=== PATIENT | female | born 1990 | race American Indian/Alaskan Native ===

== ENCOUNTER 2024-07-17 15:18 | Outpatient (CLI) | payer OTHER, SELFPAY ==
[2024-07-17] VITALS (26 sets, daily range): BP systolic 104–128; BP diastolic 63–78; PULSE 51–80; RESP 17–97; TEMP 36.9; O2SAT 97–99; BMI 28.8
--- NOTE | 2024-07-17 15:57 | XR_ITS ---
Examination: Biophysical profile, ultrasound Date and time of exam: July 17, 2024 1634 hours INDICATIONS: deceleration on stress testing in the doctor's office today Technique: Multiple transabdominal sonographic images of the pelvis abdomen obtained. Attention is directed to the breathing movement, gross body movement, amniotic fluid volume and tone. Findings: Amniotic fluid index 5.3 cm Total biophysical profile is 8 of 8. breathing movement is 2. Gross body movement is 2. tone is 2. Qualitative amniotic fluid volume is 2 Impression: Biophysical profile is 8 of 8.
--- NOTE | 2024-07-17 18:06 | PD.LDPN ---
Documentation for date of: 07/17/24 OB Labor Progress Note Pelvic Exam Amniotic membrane status: Intact Assessment and Plan Comments: Renetta is a 34yo with SIUP at 36+wk presenting to L&D for evaluation after having an audible heart rate decel at routine OB visit today with Dr. Arriaga. She notes no painful/regular ctx, no vaginal bleeding, no loss of fluid. Normal movement. She notes that last week amniotic fluid was low, she was admitted to the hospital in [place] and discharged when repeat ultrasound showed fluid went up. Current : This is complicated by: IUGR (4th percentile), has IOL scheduled 07/21 in [place] 2 prior term svds ROS negative other than what was described above. Vitals wnl, afebrile General: well developed, well nourished, no acute distress, conversant Cardiac: normal heart rate Lungs: breathing without distress Abdomen: soft, gravid, non-tender, no rebound or guarding Extremities: no pain with palpation of calves NST: Reactive, +accels, no decels, mod celeste [place]: no regular ctx pattern BPP: 8/8 but RICKEY 5.3cm Assessment: Renetta is a 34yo with SIUP at 36+wk with borderline oligohydramnios. Vitals wnl, benign exam. Plan: -Discussed findings with patient and recommendation for observation status for IV and oral hydration. She is amenable. -Establish IV, LR at 125ml/hr -Regular diet -CEFM -Repeat BPP in the morning Angelika Ritchie MD
[2024-07-17] MEDS: RINGERS LACTATED 1000 ML 1,000 ML 125 ML IV (19:07)
[2024-07-18] VITALS (20 sets, daily range): BP systolic 115–123; BP diastolic 59–69; PULSE 49–68; O2SAT 96–98
[2024-07-18] MEDS: RINGERS LACTATED 1000 ML 1,000 ML 125 ML IV ×2 (02:27→11:00)
--- NOTE | 2024-07-18 08:00 | XR_ITS ---
Examination: Biophysical profile, ultrasound Date and time of exam: July 18, 2024 1107 hours INDICATIONS: Low amniotic fluid index 5.3 cm on ultrasound July 17, 2024 Technique: Multiple transabdominal sonographic images of the pelvis abdomen obtained. Attention is directed to the breathing movement, gross body movement, amniotic fluid volume and tone. Findings: Amniotic fluid index 8.4 cm Total biophysical profile is 8 of 8. breathing movement is 2. Gross body movement is 2. tone is 2. Qualitative amniotic fluid volume is 2 Impression: Biophysical profile is 8 of 8.
--- NOTE | 2024-07-18 11:42 | PD.LDDS ---
DS: Providers Provider Primary care physician: Physician No Primary/Family Attending Provider on Admission: Gustavo Redding MD Attending Provider on DC: Angelika Ritchie MD Discharging Provider: Angelika Ritchie MD DS: Diagnosis Discharge Diagnosis (1) IUGR (intrauterine growth restriction): Status: Acute Problem List Completed Was Problem List Reviewed/Reconciled?: Yes Summary/Hosp Course Brief History: Renetta is a 34yo with SIUP at 36+wk who was sent for assessment after having an audible FHR decel in office yesterday. On testing, she had reactive NST with no decels and BPP was 8/8, but RICKEY was only 5.3cm, borderline oligohydramnios. She was observed and hydrated (IV and oral) overnight with continuous heart rate monitoring. Repeat BPP today is 8/8 with RICKEY 8cm by verbal report. FHRT is overwhelmingly Cat I with mod celeste, +accels, NO late decels (in the >12hr of monitoring, there were only a couple variable decels). She feels well, has had very active movement (more than she has felt in previous days), no bleeding, lof, or regular ctx. Vitals wnl, benign exam. At this time it is safe for discharge. She has follow up scheduled with Dr. Arriaga for NST visit on of this week. Status at Discharge Functional status at discharge: independent ambulation Overall status at discharge: patient is back to baseline Time Spent with Patient Time attestation: Total time spent providing and/or coordinating discharge services: Exam Vital Signs Temp Pulse Resp BP Pulse Ox O2 Del Method 98.5 F 64 17 122/59 L 98 Room Air 07/17/24 16:00 07/18/24 10:59 07/17/24 16:00 07/18/24 10:59 07/18/24 08:25 07/17/24 15:27 Narrative Exam General: well developed, well nourished, no acute distress, conversant Cardiac: normal heart rate Lungs: breathing without distress Abdomen: soft, gravid, non-tender, no rebound or guarding Extremities: no edema of BLE Discharge Plan Plan Patient Disposition: HOME (Self Care) Patient condition on transfer: Stable Prescriptions/Referrals Prescriptions/Med Rec: No Action Vitamin Tablet 1 tab PO QDAY Referrals: No Primary/Family,Physician [Primary Care Provider] - Patient/Caregiver Discharge Instructions Discharge Activity: activity as tolerated Other Discharge Activity Instructions:: Good hydration all day long Other Discharge Diet Instructions: Regular Education Materials: Kick Counts, Prematurity, [facility] Antepartum Discharge, Antepartum Discharge Print Language: [place] Islander Activity Restrictions/Additional Instructions: -Increase Fluid intake -Keep Follow Up appointment with Primary Superintendent Drilling. Stand Alone Forms: Patient Portal Info Letter Discharge Order Discharge Orders: Discharge (Routine); Ordered 07/18/24 Ordered By: Angelika Ritchie Planned Discharge Date 07/18/24
== END 2024-07-18 11:52 | disposition home or self-care (01) ==
LOC: S4S1 15:20 → S4SX 15:21
PROVIDERS: Referring Provider Obstetrics & Gynecology; Visit Provider Obstetrics & Gynecology
DX: O47.03 False labor before 37 completed weeks of gestation, third trimester (principal); O36.5930 Maternal care for other known or suspected poor fetal growth, third trimester, not applicable or unspecified; Z3A.36 36 weeks gestation of pregnancy
CPT/HCPCS: 59025; 76819; 96360; 96361; J7120

== ENCOUNTER 2024-07-18 23:21 | Inpatient (IN) | payer OTHER, SELFPAY ==
[2024-07-18 23:25] VITALS: BP 133/64; PULSE 68; RESP 17; RESP 98; TEMP 37.2
[2024-07-18 23:32] VITALS: BP 133/64; PULSE 68
[2024-07-19] VITALS (33 sets, daily range): BP systolic 105–150; BP diastolic 53–77; PULSE 41–100; RESP 16–20; TEMP 36.7–36.9; O2SAT 85–100; BMI 29.2
[2024-07-19] MEDS: RINGERS LACTATED 1000 ML 1,000 ML 125 ML IV (00:21)
[2024-07-19 00:30] LABS: Basophils % (Auto) 0 % (0-2.5); Eosinophils % (Auto) 0 % (0-10); Hematocrit 32.3 % (36.0-46.0); Hemoglobin 11.3 g/dL (12.0-16.0); Immature Granulocytes % (Auto) 0 % (0-0); Immature Granulocytes Auto 0.02 Thou/mm3 (0.00-0.00); Lymphocytes # (Auto) 1.2 Thou/mm3 (1.0-4.8); Lymphocytes % (Auto) 14 % (10-50); Mean Corpuscular Hemoglobin 28.6 pg (25.0-35.0); Mean Corpuscular Volume 82 fL (80-100); Monocytes # (Auto) 0.7 Thou/mm3 (0.0-0.8); Monocytes % (Auto) 8 % (0-12); Neutrophils # (Auto) 6.5 Thou/mm3 (1.8-7.7); Neutrophils % (Auto) 78 % (37-80); Nucleated Red Blood Cell % 0 /100 WBC (0); Platelet Count 100 Thou/mm3 (140-440); RDW Standard Deviation 43.1 fL (36.4-46.3); Red Blood Count 3.95 Miln/mm3 (4.00-5.20); White Blood Count 8.4 Thou/mm3 (3.6-11.0)
[2024-07-19] MEDS: Ampicillin Inj 2,000 MG in SODIUM CHLORIDE 0.9% (POP) 100 ML 200 MG IV (00:50)
[2024-07-19] MEDS: MISOPROSTOL 50 mCg TABLET PO (00:50)
[2024-07-19 01:08] LABS: Syphilis Nonreactive (Nonreactive)
[2024-07-19 04:38] LABS: Amphetamine/Metham Scrn,Ur OB Negative (Negative); Benzoylecgonine Screen, Ur OB Negative (Negative); Opiate Screen,Urine OB Negative (Negative); THC Screen,Urine OB Negative (Negative)
[2024-07-19] MEDS: Ampicillin Inj 1,000 MG in SODIUM CHLORIDE 0.9% (Popper) 50 ML 50 MG IV (04:54)
--- NOTE | 2024-07-19 05:02 | PD.LDHP ---
Documentation for date of: 07/19/24 OB Labor/Induct. HPI History of Present Illness Chief complaint: leakage of fluid : 3 Para: 2 Term pregnancies: 2 pregnancies: 0 Living children: 2 History of Abortions: Spontaneous and Elective: 2 History of Vaginal deliveries: 0 History of sections: No History of : No Date of last menstrual period: 11/04/23 STEW: 08/10/24 Gestational Age (weeks): 36 Gestational Age (days): 6 Gestational age based on last menstrual period: 36 History of present illness: Patient presents for loss of fluid, clear, that occurred at 2220. No regular/painful ctx. No vaginal bleeding. Normal movement. No fevers/chills. History of Present Adequate Care: Yes Abnormal ultrasound findings: Most recent growth scan: 4th percentile IUGR Narrative: 2019 7lb1 2020 6lb11 Labs Maternal Blood Type: A Pos Labs: Negative: RPR, Hepatitis B, Rubella Titre, HIV, Chlamydia and Gonorrhea and Unknown: Herpes Type 1, Herpes Type 2 and Group Beta Strep Review of Systems Review of Systems Narrative Review of Systems: Review of Systems Systems Reviewed: All systems reviewed, normal except as documented Constitutional Constitutional: Denies body ache(s), Denies chills, Denies fever(s) and Denies headache(s) ENT Ears, Nose, Mouth, and Throat: Denies headache(s) and Denies vertigo Cardiovascular Cardiovascular: Denies chest pain, Denies palpitations, Denies dyspnea and Denies syncope Respiratory Respiratory: Denies cough, Denies dyspnea Gastrointestinal Gastrointestinal: Denies nausea and Denies vomiting Neurologic Neurologic: Denies convulsions, Denies headache(s), Denies other visual disturbances, Denies syncope and Denies vertigo Past Medical History Family History OTHER FAMILY HX: non-contributory Surgical History SURGICAL: Negative Section OTHER SURGICAL HX: no abdominal surgeries Social History SOCIAL: No tobacco/ETOH/illicit drug use Past Medical History Comments PMH COMMENT: Patient has hx of spina bifida occulta Hx of chlamydia salpingitis/PID Anemia Hx of anxiety/depression Meds Home Medications and Allergies Home Medications ?Medication ?Instructions ?Recorded ?Confirmed ?Type prenat.vits,dinesh,gbr-[id number] 1 tab PO QDAY 10/25/20 07/19/24 History Allergies Allergy/AdvReac Type Severity Reaction Status Date / Time No Known Allergies Allergy Verified 07/19/24 00:04 OB Exam Physical Exam Vital signs: Temp Pulse Resp BP Pulse Ox 98.3 F 73 18 150/67 H 85 L 07/19/24 02:47 07/19/24 04:48 07/19/24 02:47 07/19/24 04:48 07/19/24 05:01 Narrative: General: well developed, well nourished, no acute distress, conversant Cardiac: normal heart rate Lungs: breathing without distress Abdomen: soft, gravid, non-tender, no rebound or guarding Extremities: no pain with palpation of calves Detailed Labor and Delivery Exam Dilation (cm): 1 Effacement (%): 50 Cervix position: posterior station: -2 Consistency: medium Presentation: Vertex Membranes: ruptured Amniotic fluid: clear monitor accelerations: 15x15 monitor decelerations: None remote computer terminal operator variability: Moderate (11-25) Contraction frequency (min): q5min OB Results Labs 07/19/24 00:00 Labs: Short CBC 07/19/24 Range/Units 00:00 WBC 8.4 (3.6-11.0) Thou/mm3 Hgb 11.3 L (12.0-16.0) g/dL Hct 32.3 L (36.0-46.0) % Plt Count 100 L (140-440) Thou/mm3 OB Assessment & Plan Assessment and Plan (1) premature rupture of membranes (PPROM) delivered, current hospitalization: Status: Acute Assessment and plan: Renetta is a 34yo with SIUP at 36&6wk presenting with PPROM, clear, at 2220 on 07/18. SCE: 150/-2. Vitals wnl, benign exam. Reassuring assessment. PMhx/ complicated by: -IUGR 4th percentile -Overnight admission one day prior for hydration for borderline oligo 5.3cm that improved to 8cm -Hx of anxiety/depression Plan: -Admit to L&D -Establish IV, routine labs -CEFM -Clear liquid diet -Research Associate Quality Control Qc/consent re: -Augmentation with cytotec -GBS status: unknown. Ampicillin per protocol -Anticipate -Safe to proceed (2) IUGR (intrauterine growth restriction): Status: Acute
[2024-07-19] MEDS: OXYTOCIN in NS 20 units 20 UNIT/1,000 ML BAG 125 UNIT IV (05:18)
--- NOTE | 2024-07-19 05:38 | OBDSUM_ITS ---
Data (Enriquez) Data Hx Section: No : 3 Term: 2 : 0 Livin Abortions: Spontaneous & Theraputic: 2 Delivery Data (Enriquez) Labor Data Initiation of labor: Spontaneous Induction/Augmentation Agent: Cytotec-PO ROM date: 07/18/24 ROM time: 22:20 Amniotic membrane rupture type: Spontaneous Amniotic fluid description: Clear Delivery Data Onset of labor date: 07/19/24 Onset of labor time: 04:40 Complete dilation date: 07/19/24 Complete dilation time: 05:06 delivery date: 07/19/24 Gans delivery time: 05:12 Placenta delivery date: 07/19/24 Placenta delivery time: 05:18 Stage 1 total time: Labor - Stage 1 Duration 26 minutes Delivered by: Angelika Ritchie Delivery nurse: Malina Mireles nurse: Inge Brooks Business Office Coordinator at delivery: No Support person(s) at delivery: Wilberto Lemon Delivery Method Delivery method: Normal Vaginal Delivery Presentation: Vertex Anesthesia Type Anesthesia Type: None Placenta Placenta delivery description: Spontaneous Cord blood sent to lab: Yes cord blood collection: Cord Blood Type Episiotomy Episiotomy description: None EBL Estimated blood loss (ml): 200 Umbilical Cord cord description: 3 Vessels, Nuchal Cord and Loose Additional Procedures Renetta is a 34yo s/p uncomplicated at 36&6wk after presenting with PPROM, delivering at 0512 on 07/19/2024. On presentation, SCE was 1/50/-2. She progressed with cytotec augmentation to C/C/0 at which point she began pushing. She did not receive an epidural. I was called to the room for delivery and walked there within 30 seconds, but patient could not avoid pushing and RN delivered baby as I was donning gown/gloves. had immediate spontaneous cry and was very vigorous. Apgars 8/9. Infant placed on maternal abdomen where nose/mouth were suctioned and infant dried/stimulated. After approximately 1 minute, cord was clamped x2 and cut by FOB. Cord blood collected for typing. With fundal massage and cord traction, placenta delivered spontaneously and intact with 3 vessel centrally inserted cord. Bimanual massage performed and IV pitocin given per protocol with fundus then firm at u-3cm and hemostasis noted. Inspection of perineum and vagina revealed a very small hemostatic left labial abrasion that needed no repair. Small trickle of blood, so sweep just within cervix/OSWALDO performed which retrieved a small amount of clot. Hemostasis noted after that with fundal massage. All counts correct x2. Mom and infant were doing well when I left the room. Angelika Ritchie MD Complications Complications: none Gans Data (Enriquez) Data order: 1 's gender: Female weight (gms): 2010 g Weight (pounds): 4 lbs and 6.9 ozs length: 44.5 m 1 minute: 8 5 minutes: 9
[2024-07-19] MEDS: IBUPROFEN TAB 400 MG TABLET 800 MG PO (06:23)
[2024-07-19] MEDS: DOCUSATE SOD 100 MG CAPSULE PO ×2 (10:44→20:03)
[2024-07-19] MEDS: PRENATAL VITAMIN/FE FUM/FA TABLET 1 TAB PO (10:44)
[2024-07-19 12:11] LABS: Basophils % (Auto) 0 % (0-2.5); Eosinophils % (Auto) 0 % (0-10); Hemoglobin 10.8 g/dL (12.0-16.0); Immature Granulocytes % (Auto) 0 % (0-0); Immature Granulocytes Auto 0.04 Thou/mm3 (0.00-0.00); Lymphocytes # (Auto) 1.4 Thou/mm3 (1.0-4.8); Lymphocytes % (Auto) 12 % (10-50); Mean Corpuscular HGB Conc 33.8 g/dl (31.0-37.0); Mean Corpuscular Volume 86 fL (80-100); Monocytes # (Auto) 0.9 Thou/mm3 (0.0-0.8); Monocytes % (Auto) 8 % (0-12); Neutrophils # (Auto) 9.5 Thou/mm3 (1.8-7.7); Neutrophils % (Auto) 79 % (37-80); Nucleated Red Blood Cell % 0 /100 WBC (0); Platelet Count 87 Thou/mm3 (140-440); RDW Standard Deviation 45.8 fL (36.4-46.3); Red Blood Count 3.72 Miln/mm3 (4.00-5.20); White Blood Count 11.9 Thou/mm3 (3.6-11.0)
[2024-07-20] VITALS: BP 125/70; PULSE 61; RESP 16; TEMP 36.7; O2SAT 99
[2024-07-20 08:00] VITALS: BP 120/78; PULSE 64; RESP 16; TEMP 36.6; O2SAT 98
--- NOTE | 2024-07-20 08:00 | PC.LAC ---
Mom states baby came back to her early afternoon yesterday, with instructions not to put baby to breast in order to not over tax baby during feeds. Mom stated she has only continue to pump a couple of times since initial pumping yesterday morning. So leloley 3 times in 24 hour period. Explained to mom that she needs to stay on a pumping cycle of at least every 2-3 hours if she plans to maintain a good milk supply. Also to do hand massage for stimulation. Mom states that she will start to breastfeed at the chest once she goes home. She is an experienced breastfeeder and feels she will have no issues. Gave out hand out for resource center if she should need it.
[2024-07-20] MEDS: DOCUSATE SOD 100 MG CAPSULE PO (08:45)
[2024-07-20] MEDS: PRENATAL VITAMIN/FE FUM/FA TABLET 1 TAB PO (08:45)
--- NOTE | 2024-07-20 10:31 | PC.SS ---
Zuly GARRISON met with patient face-to face to do initial assessment as well as BLADIMIR Marrufo. Zuly GARRISON introduced herself, role in the agency, reason for visit, and discussed limits of confidentiality. Patient appeared to be alert and oriented, to place time and situation. Patient Renetta Lemon is a 34 Year-old Female admitted to the hospital to deliver her daughter, who was not at bedside at the time.? Patient reported that she resides at home with ?s father, Wilberto Lemon. She reports she has alot of support at home from family. Prior to admission patient reported, she was independent with ADL?s. Patient reports this is her third child. Patient's surrogate decision maker is her , Wilberto Lemon. Patient denies any history or current domestic violence or child welfare services involvement. 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 However did not experience any with her second child. ?The patient reports Dr. Arriaga was following her throughout her care. Patient reports she has all needed supplies for the infant upon discharge. Patient reports she will be formula and breast feeding the . . Zuly GARRISON provided education regarding post- Depression, as well as counseling groups and Parenting Network as well as Family Crisis Resources. Zuly GARRISON provided Warm Line and Crisis Line contact information.
--- NOTE | 2024-07-20 12:53 | ESDS_ITS ---
DS: Providers Provider Date of admission: 07/18/24 23:57 Primary care physician: Physician No Primary/Family Admitting Provider: Angelika Ritchie MD Attending Provider on Admission: Angelika Ritchie MD Consults: 07/19/24 05:33 Referral Routine Comment: Attending Provider on DC: Angelika Ritchie MD Discharging Provider: Angelika Ritchie MD DS: Diagnosis Discharge Diagnosis (1) premature rupture of membranes (PPROM) delivered, current hospitalization: Status: Acute (2) IUGR (intrauterine growth restriction): Status: Acute (3) care following vaginal delivery: Status: Acute (4) Normal spontaneous vaginal delivery: Status: Acute Problem List Completed Was Problem List Reviewed/Reconciled?: Yes Summary/Hosp Course Brief History: Patient presents for loss of fluid, clear, that occurred at 2220. No reg ular/painful ctx. No vaginal bleeding. Normal movement. No fevers/chills. Renetta is a 34yo [id number] s/p uncomplicated at 36&6wk after presenting with PPROM, delivering at 0512 on 07/19/24. She has had an uncomplicated course, meeting all milestones and feels ready for discharge home. She is ambulating without lightheadedness, tolerating regular diet no n/v, spontaneously voiding without issue. She has no chest pain or shortness of breath. No fevers or chills. Minimal, appropriate discomfort. Vitals normal, benign exam. Hemodynamically stable with no evidence of infection. PP Hgb 10.8. Peripartum Data Delivery Method: Normal Vaginal Delivery Episiotomy Description: None Status at Discharge Functional status at discharge: independent ambulation Overall status at discharge: patient is back to baseline Time Spent with Patient Time attestation: Total time spent providing and/or coordinating discharge services: Exam Vital Signs Temp Pulse Resp BP Pulse Ox O2 Del Method 97.8 F 64 16 120/78 98 Room Air 07/20/24 08:00 07/20/24 08:00 07/20/24 08:00 07/20/24 08:00 07/20/24 08:00 07/20/24 08:00 Narrative Exam General: well developed, well nourished, no acute distress, conversant Cardiac: normal heart rate Lungs: breathing without distress Abdomen: soft, post-gravid, non-tender, no rebound or guarding, Fundus firm at u-3cm. Extremities: no pain with palpation of calves, trace edema of BLE Discharge Plan Plan Patient Disposition: HOME (Self Care) Patient condition on transfer: Stable Prescriptions/Referrals Prescriptions/Med Rec: New docusate sodium 100 mg Capsule 100 mg PO BID Qty: 20 0RF ibuprofen 800 mg tablet 800 mg PO Q8H PRN (Reason: See Comments) 10 Days Qty: 20 0RF Continued prenat.vits,dinesh,joq-mlee-sgwoe Tablet 1 tab PO QDAY Referrals: No Primary/Family,Physician [Primary Care Provider] - Patient/Caregiver Discharge Instructions Discharge Activity: activity as tolerated and other Other Discharge Activity Instructions:: vaginal rest and no heavy lifting more than 10 pounds for 6 weeks Other Discharge Diet Instructions: regular Education Materials: After a Vaginal Print Language: Spanish Activity Restrictions/Additional Instructions: follow up with Dr. Arriaga in 2-4 weeks, call office for appointment Stand Alone Forms: [employer] Award Info., Patient Portal Info Letter Discharge Order Discharge Orders: Discharge (Routine); Ordered 07/20/24 Ordered By: Angelika Ritchie Planned Discharge Date 07/20/24
== END 2024-07-20 17:44 | disposition home or self-care (01) | DRG 807 ==
LOC: S4SX 07-19 07:30 → S4NX 07-19 08:21
PROVIDERS: Admitting Provider Obstetrics & Gynecology; Visit Provider Obstetrics & Gynecology
DX: O42.013 Preterm premature rupture of membranes, onset of labor within 24 hours of rupture, third trimester (principal); Z37.0 Single live birth; O69.81X0 Labor and delivery complicated by cord around neck, without compression, not applicable or unspecified; Z3A.36 36 weeks gestation of pregnancy; O71.82 Other specified trauma to perineum and vulva; O36.5930 Maternal care for other known or suspected poor fetal growth, third trimester, not applicable or unspecified
CPT/HCPCS: 36415; 59025; 59409; 80307; 85025; 86780; 86850; 86900; 86901; 94762; J0290; J2590; J7050; J7120; A9270